=== PATIENT | female | born 1995 | race Caucasian/White ===

== ENCOUNTER 2017-08-22 15:45 | Emergency (ER) | payer OTHER ==
[2017-08-22] MEDS: LIDOCAINE 1% MDV 20ML VIAL SC ×2 (17:47)
[2017-08-22 18:41] LABS: CONTROL LINE HCG INT CTR LINE PRESENT; HCG, SERUM QUALITATIVE NEGATIVE (NEGATIVE)
[2017-08-22 18:45] LABS: ANION GAP 9 MEQ/L (8-16); BLOOD UREA NITROGEN 7 MG/DL (7-18); CALCIUM LEVEL 9.6 MG/DL (8.5-10.1); CARBON DIOXIDE LEVEL 26 MEQ/L (21-32); CHLORIDE LEVEL 104 MEQ/L (98-107); CREATININE FOR GFR 0.78 MG/DL (0.55-1.30); GLOMERULAR FILTRATION RATE > 60.0 (>60); GLUCOSE, FASTING 80 MG/DL (70-100); POTASSIUM SERUM 4.4 MEQ/L (3.5-5.1); SODIUM LEVEL 139 MEQ/L (136-145)
[2017-08-22] MEDS: BACTRIM 160MG/800MG DS TAB PO (18:55)
== END 2017-08-22 19:09 | disposition home or self-care (01) ==
LOC: M ED 15:45
DX: L02.413 Cutaneous abscess of right upper limb (principal); K21.9 Gastro-esophageal reflux disease without esophagitis; Z79.3 Long term (current) use of hormonal contraceptives; Z79.899 Other long term (current) drug therapy
CPT/HCPCS: 84703

== ENCOUNTER 2017-08-24 11:26 | Emergency (ER) | payer OTHER ==
[2017-08-24] MEDS: CEPHALEXIN 500 MG CAP PO (13:52)
== END 2017-08-24 14:04 | disposition home or self-care (01) ==
LOC: M ED 11:26
DX: Z48.01 Encounter for change or removal of surgical wound dressing (principal); K21.9 Gastro-esophageal reflux disease without esophagitis; Z79.899 Other long term (current) drug therapy
CPT/HCPCS: 99282

== ENCOUNTER → 2018-09-12 | Outpatient (CLI) | payer OTHER ==
[~2018-09-12] MED LIST: B-12100011 SL; BACT800T5 PO; FERR325T18 PO; KEFL500C17 PO; OMEP40CA2 PO; ORSYTAB PO; XARE20TA PO
--- NOTE | 2018-09-12 17:28 | REP ---
Bilateral lower extremity deep vein duplex ultrasound: Right lower extremity: There is a linear nonocclusive thrombus in the common femoral vein. This may represent a chronic thrombus. The deep veins otherwise demonstrate normal compression, normal Doppler color flow and normal Doppler waveforms with respiration augmentation at multiple levels. Impression: Right common femoral vein linear nonocclusive thrombus, possibly a chronic thrombus. Left lower extremity: The deep veins demonstrate normal compression, normal Doppler color flow and normal Doppler waveforms with respiration and augmentation from the popliteal vein to the common femoral vein. Impression: There is no left lower extremity deep vein thrombus. Electronically Signed by Antonio Steiner MD 09/12/2018 05:20 P
== END ==
LOC: M RAD 16:21
PROVIDERS: ATTEND Internal Medicine Hematology & Oncology
DX: R79.1 Abnormal coagulation profile (principal)